=== PATIENT | female | born 1985 | race Caucasian/White ===

== ENCOUNTER 2025-07-20 08:19 | Outpatient (REF) | payer MEDICAID, SELFPAY ==
--- OUTSIDE RECORDS SUMMARY | 2025-07-20 08:25 | XMS_ITS | Encounter Summary ---
Author Organization [employer] Address [address] [facility] [address] [place] [address] Care Team Providers Care Pipe Layer Helper Name Role Phone Alida Torres CNP Primary Care Provider [phone] Encounter Details Date Type Department Care Team ([facility] Contact Info) Description 05/09/2025 Telephone [facility] CHC MED & PEDS [address] [place] [address] Alida Torres CNP [address] [place] [address] Social History Tobacco Use Types Packs/Day Years Used Date Smoking Tobacco: Never Assessed Comments Unknown Sex and Gender Information Value Date Recorded Sex Assigned at Female 06/08/2025 10:28 AM EDT Legal Sex Female 1:48 PM EST Gender Identity Female 06/08/2025 10:28 AM EDT Sexual Orientation Straight 06/21/2025 11 :19 AM EDT documented as of this encounter Miscellaneous Notes * Telephone Encounter - Apmaro Webb - 05/09/2025 1:23 PM EDT Incoming call to patient to book New Patient appt. Patient booked for 06/08/25 with Brian. Medical DX Reported : Pt reported had 2 Colon polyps removed *[employer] House Centrifugal Operator advised caller to arrive 15 minutes early for the visit. Caller was also informed to notifythe clinic if the visit is no longer needed. No-shows will be placed at the bottom of the scheduling list. Appt reminder and sent via text and mail. documented in this encounter Plan of Treatment Upcoming Encounters Date Type Department Care Team (Late st Contact Info) Description 07/20/2025 9:00 AM EDT Office Visit [facility] CHC MED & PEDS [address] [place] [address] Alida Torres CNP [address] [place] [address] documented as of this encounter Visit Diagnoses Not on filedocumented in this encounter Care Teams Pipe Layer Helper Relationship Specialty Start Date End Date Alida Torres CNP [address] [place] [address] PCP - General Family Medicine 06/08/25 documented as of this encounter
--- OUTSIDE RECORDS SUMMARY | 2025-07-20 08:26 | XMS_ITS | Encounter Summary ---
Author Organization [employer] Address [address] [place] [address] Care Team Providers Care System Developer Associate Manager Name Role Phone TorresAlida DAVID Primary Care Provider [phone] Encounter Details Date Type Department Care Team ([facility] st Contact Info) Description 06/08/2025 Orders Only [facility] CHC MED & PEDS [address] [place] [address] Provider, MD Ramila Social History Tobacco Use Types Packs/Day Years Used Date Smoking Tobacco: Former Cigarettes Q uit: 2020 Passive Smoke Exposure: Past Smokeless Tobacco: Never Depression Answer Date Recorded Patient Health Questionnaire-9 Score 14 06/08/2025 Patient Health Questionnaire-9 Score 14 06/08/2025 Last PHQ-9: Questionnaire Data Not on file 0 06/08/2025 Housing Stability Answer Date Recorded What is your housing situation today? I have bettyurbano somers 06/08/[address] you li ve. Do you have problems with any of the following? None of the above 06/08/2025 Food Insecurity Answer Date Recorded Within the past 12 months, y ou worried that your food would run out before you got money to buy more: Sometimes True 2024 Within the past 12 months,th e food you bought just didn't last and you didn't have enough money to get more: Sometimes True 06/08/2025 Transportation Answer Date Recorded In the past 12 months, has l ack of transportation kept you from medical appts, meetings, work or from getting things needed for daily living? No 06/08/2025 Utilities Answer Date Recorded In the past 12 months, has t he electric, gas, oil or water company threatened to shut off services in your home? No 06/08/2025 Depression Answer Date Recorded Patient Health Questionnaire-2 Score 3 06/08/2025 Internet Access Answer Date Recorded Internet Access Q1 Yes 06/08/2025 Internet Access Q2 Not on file 06/08/2025 Comments No Sex and Gender Information Value Date Recorded Sex Assigned at Female 06/08/2025 10:28 AM EDT Legal Sex Female 1:48 PM EST Gender Identity Female 06/08/2025 10:28 AM EDT Sexual Orientation Straight 06/21/2025 11 :19 AM EDT documented as of this encounter Functional Status * Over the past 2 weeks, how often have you been bothered by any of the following problems? Question Answer Date of Assessment Author Patient Health Questionnaire -2 Score 3 06/08/2025 12:01 PM EDT Sa elissa Arroyo [place] * Little interest or pleasure in doing things Answer Date of Assessment Author Several days 06/08/2025 12:01 PM EDT Kenia Mustafa MA * Feeling down, depressed, or hopeless Answer Date of Assessment Author More than half the days 06/08/2025 12:01 PM EDT Kenia Arroyo MA * Trouble falling or staying asleep, or sleeping too much Answer Date of Assessment Author More than half the days 06/08/2025 12:01 PM EDT Kenia Arroyo MA * Feeling tired or having little energy Answer Date of Assessment Author More than half the days 06/08/2025 12:01 PM EDT Kenia Arroyo MA * Poor appetite or overeating Answer Date of Assessment Author More than half the days 06/08/2025 12:01 PM EDT Kenia Arroyo MA * Feeling bad about yourself - or that you are a failure or have let yourself or your family down Answer Date of Assessment Author Nearly every day 06/08/2025 12:01 PM EDT Kenia Banda MA * Trouble concentrating on things, such as reading the newspaper or watching television Answer Date of Assessment Author More than half the days 06/08/2025 12:01 PM EDT Kenia Arroyo MA * Moving or speaking so slowly that other people could have noticed? Or the opposite - being so fidgety or restless that you have been moving around a lot more than usual. Answer Date of Assessment Author Not at all 06/08/2025 12:01 PM EDT Kenia Mustafa MA * Thoughts that you would be better off or hurting yourself in some way Answer Date of Assessment Author Not at all 06/08/2025 12:01 PM EDT Kenia Mustafa MA * Patient Health Questionnaire-9 Score Answer Date of Assessment Author 14 06/08/2025 12:01 PM EDT Kenia Mustafa MA * How difficult have these problems made it for you to do your work, take care of things at home, or get along with other people? Answer Date of Assessment Author Somewhat difficult 06/08/2025 12:01 PM EDT Kenia Castro MA * Over the last 2 weeks, how often have you been bothered by any of the following problems? Question Answer Date of Assessment Author Feeling nervous, anxious, or on edge 2 06/08/2025 12:02 PM EDT Sa elissa Arroyo MA Not being able to stop or control worrying 2 06/08/2025 12:02 PM EDT Sa elissa Arroyo MA Worrying too much about different things 2 06/08/2025 12:02 PM EDT Sa elissa Arroyo MA Trouble relaxing 2 06/08/2025 12:02 PM AVELINAT Kenia Arroyo MA Being so restless that it is hard to sit still 2 06/08/2025 12:02 PM EDT Sa elissa Arroyo MA Becoming easily annoyed or irritable 3 06/08/2025 12:02 PM AVELINAT Sa elissa Arroyo MA Feeling afraid as if somethi ng awful might happen 2 06/08/2025 12:02 PM EDT Sa elissa Arroyo MA ROSY-7 Total Score 15 06/08/2025 12:02 PM EDT Kenia Arroyo MA documented as of this encounter Plan of Treatment Upcoming Encounters Date Type Department Care Team (Late st Contact Info) Description 07/20/2025 9:00 AM EDT Office Visit [facility] MED & PEDS [address] [place] [address] Alida Torres CNP [address] [place] [address] documented as of this encounter Procedures Procedure Name Priority Date/Time Associated Diagnosis Comments COLONOSCOPY Routine 12/08/2023 1:26 PM EDT documented in this encounter Results * Hm Colonoscopy (12/08/2023 1:26 PM EDT) us Historical Provider HEALTH MAINTENANCE Final Result documented in this encounter Visit Diagnoses Not on filedocumented in this encounter Additional Health Concerns Assessment Noted Time PHQ-9 Depression Total Score: 14 025 12:01 PM EDT documented as of this encounter Care Teams System Developer Associate Manager Relationship Specialty Start Date End Date Alida Torres CNP [address] [place] [address] PCP - General Family Medicine 06/08/25 documented as of this encounter
--- OUTSIDE RECORDS SUMMARY | 2025-07-20 08:26 | XMS_ITS | Encounter Summary ---
Author Organization [employer] Address [address] [facility] 7[address] [place] [address] Care Team Providers Care Stile Ripsaw Operator Name Role Phone Alida Torres CNP Primary Care Provider [phone] Reason for Visit * Reason Onset Date Comments chart prep 07/16/2025 Encounter Details Date Type Department Care Team ([facility] Contact Info) Description 07/16/2025 Telephone [facility] CHC MED & PEDS [address] [place], [place] [phone] Alida Torres CNP [address] [place] [address] chart prep Social History Tobacco Use Types Packs/Day Years Used Date Smoking Tobacco: Former Cigarettes Q uit: 2020 Passive Smoke Exposure: Past Smokeless Tobacco: Never Depression Answer Date Recorded Patient Health Questionnaire-9 Score 14 06/08/2025 Patient Health Questionnaire-9 Score 14 06/08/2025 Last PHQ-9: Questionnaire Data Not on file 0 06/08/2025 Housing Stability Answer Date Recorded What is your housing situation today? I have betty somers 06/08/[address] you [...] encounter Miscellaneous Notes * Telephone Encounter - Kenia Arroyo MA - 07/16/2025 2:17 PM EDT Chart Prep Labs: not done Images: not applicable Referrals: appointment pending Vaccines due: Covid, Flu, Hep B, and HPV Screenings: pap smear, mammogram (08/15/25 at 1:15 PM) Overdue care gaps: Not applicable documented in this encounter Plan of Treatment Upcoming Encounters Date Type Department Care Team (Late st Contact Info) Description 07/20/2025 9:00 AM EDT Office Visit [facility] MED & PEDS [address] [place] [address] Alida Torres CNP [address] [place] [address] documented as of this encounter Visit Diagnoses Not on filedocumented in this encounter Additional Health Concerns Assessment Noted Time PHQ-9 Depression Total Score: 14 025 12:01 PM EDT documented as of this encounter Care Teams Stile Ripsaw Operator Relationship Specialty Start Date End Date Alida Torres CNP [address] [place] [address] PCP - General Family Medicine 06/08/25 documented as of this encounter
--- OUTSIDE RECORDS SUMMARY | 2025-07-20 08:26 | XMS_ITS | Clinical Summary ---
Author Organization [employer] Address [address] [facility] 7t [place] [address] Care Team Providers Care Head Of Ethics And Compliance Name Role Phone Alida Torres CNP Primary Care Provider [phone] [phone] Allergies No known active allergies Medications sertraline (Zoloft) 50 MG tabletIndicatio ns:Anxiety,Lab Support Service Tech leda bilateral low back pain with bilateral sciatica Take 1/2 (25mg) tablet by mouth for 7 days. If tolerated may increase to 1 tablet (50mg) daily. 30 tablet 3 5 Active ibuprofen 600 MG tabletIndicatio ns:Chronic bilateral low back pain with bilateral sciatica Take 1 tablet (600 mg) by mouth 3 times daily. 90 tablet 5 07/08/20 25 lidocaine (Lidoderm) 5 % patchIndication s:Chronic bilateral low back pain with bilateral sciatica Apply 1 patch topically Once per day. Remove & discard patch within 12 hours or as directed by MD. 30 patch 5 07/08/20 25 Active Problems Problem Noted Date Diagnosed Date Anxiety and depression 12/01/2022 Family history of colon cancer 12/01/2022 Former smoker 12/01/2022 H/O section 12/01/2022 Encounters Date Type Department Care Team Description 07/16/2025 Telephone [facility] MED & PEDS [address] [place] [address] Alida Torres CNP chart prep 07/13/2025 Travel 06/08/2025 10:45 AM EDT Office Visit [facility] MED & PEDS [address] [place] [address] Alida Torres CNP Routine physical examination (Primary Dx); Anxiety; Chronic bilateral low back pain with bilateral sciatica; Dietary counseling; Exercise counseling; Class 2 obesity due to excess calories with body mass index (BMI) of 36.0 to 36.9 in adult, unspecified whether serious comorbidity present 06/08/2025 Orders Only [facility] MED & PEDS [address] [place] [address] ProviderRamila MD 06/08/2025 Travel 06/01/2025 Patient Outreach [facility] [address] [place] [address] Reymundo Hamilton MD Pre-visit Planning (Pre visit planning LVM ) 05/23/2025 Telephone [facility] MED & PEDS [address] [place] [address] Kenia Arroyo MA chart prep 05/09/2025 Telephone [facility] MED & PEDS [address] [place] [address] Alida Torres CNP from Last 3 Months Immunizations Immunization Administration Dates Next Due Influenza, IIV3, injectable 06/04/2017 Tdap 06/04/2017 Family History Medical History Relation Name Comments Colon cancer Father Uterine cancer Mother Relation Name Status Comments Father Mother Social History Tobacco Use Types Packs/Day Years [...] Orientation Straight 06/21/2025 11 :19 AM EDT Last Filed Vital Signs Vital Sign Reading Time Taken Comments Blood Pressure 132/80 06/08/2025 11:34 AM EDT Pulse 62 06/08/2025 10:43 AM EDT Temperature 36.7 C (98.1 F) 06/08/2025 10:43 AM EDT Respiratory Rate 20 06/08/2025 10:43 AM EDT Oxygen Saturation 98% 06/08/2025 10:43 AM EDT Inhaled Oxygen Concentration - - Weight 91.6 kg (202 lb) 06/08/2025 10:43 AM EDT Height 157.5 cm (5' 2 ) 06/08/2025 10:43 AM EDT Body Mass Index 36.95 06/08/2025 10:43 AM EDT Plan of Treatment Upcoming Encounters Date Type Department Care Team (Late st Contact Info) Description 07/20/2025 9:00 AM EDT Office Visit [facility] CHC MED & PEDS [address] [place] [address] Alida Torres, INGREDIENT SCALER [address] [place] [address] Health Maintenance Due Date Last Done Comments Lipid Panel 1985 Family Planning (PISQ) 2000 HPV Vaccines (1 - 3-dose series) 2000 Hepatitis C Screening 2003 Hepatitis B Vaccines (1 of 3 - 19+ 3-dose series) 2004 Pap Smear 2006 Cervical Cancer Screening 2015 HPV/Cotest 2015 COVID-19 Vaccine (1 - 2023-2 5 season) 2025 Influenza Vaccine (#1) 2025 06/04/2017 Depression Monitoring 12/06/2025 06/08/2025 , 06/08/2025 Alcohol/Substance Use Screening 06/08/2026 06/08/2025 SDOH Screening 06/08/2026 06/08/2025 Tobacco Screening 06/08/2026 06/08/2025 Disability Screening 07/13/2026 07/13/2025 DTaP/Tdap/Td Vaccines (2 - T d or Tdap) 06/04/2027 06/04/2017 Zoster Vaccines (1 of 2) 2035 RSV Patients and Patients Aged 60 years or older (1 - 1-dose 75+ series) 2060 HIV Screening Completed 12/22/2022 HIB Vaccines Aged Out No longer eligi ble based on patient's age to complete this topic Hepatitis A Vaccines Aged Out No long er eligible based on patient's age to complete this topic IPV Vaccines Aged Out No longer eligi ble based on patient's age to complete this topic Meningococcal B Vaccine Aged Out No l onger eligible based on patient's age to complete this topic Meningococcal Vaccine Aged Out No howard isaias eligible based on patient's age to complete this topic Pneumococcal Vaccine: Pediatrics (0 to 5 Years) and At-Risk Patients (6 to 49) Years Aged Out No longer eligible b ased on patient's age to complete this topic RSV under 20 months Aged Out No longe r eligible based on patient's age to complete this topic Rotavirus Vaccines Aged Out No longer eligible based on patient's age to complete this topic [email or web address] Care Teams Head Of Ethics And Compliance Relationship Specialty Start Date End Date Alida Torres CNP [address] [place] [address] PCP - General Family Medicine 06/08/25
[2025-07-20 14:06] LABS: MANUAL DIFF FLAG NO
[2025-07-20 14:17] LABS: Hematocrit 42.7 % (37.0-47.0); Hemoglobin 14.0 g/dl (12.0-16.0); Imm Gran Abs Auto 0.03 X10*3/uL (0.00-0.03); Imm Gran Pct Auto 0.3 % (0.0-0.4); Lymphocytes Absolute Auto 2.6 X10*3/uL (1.2-4.9); Mean Corpuscular HGB Conc 32.8 g/dl (31.0-35.0); Mean Corpuscular Hemoglobin 30.0 pg (27.0-33.0); Mean Corpuscular Volume 91.6 fL (80.0-98.0); NRBC Abs Auto 0.000 X10*3/uL (0.0-0.012); NRBC Pct Auto 0.0 /100WBC (0.0-0.2); Platelet Count 253 X10*3/uL (160-400); Red Blood Count 4.66 X10*6/uL (4.20-5.50); White Blood Count 9.1 X10*3/uL (4.8-10.8)
[2025-07-20 14:26] LABS: Anion Gap 11 (12-20); Blood Urea Nitrogen 11 mg/dL (9-16); Calcium 9.3 mg/dL (8.4-10.2); Carbon Dioxide 23 mmol/L (22-29); Chloride 109 mmol/L (96-108); Cholesterol 195 mg/dL (<200); Estimated Glomerular Filt Rate > 60; HDL Cholesterol 43 mg/dL (>40); Potassium 4.1 mmol/L (3.3-5.1); Sodium 139 mmol/L (135-145); Triglycerides 85 mg/dL (<150)
[2025-07-21 07:50] LABS: HBS Num1 7.93 mIU/mL (0-7.99); HBc Num1 0.08 S/CO (0.00-0.79); HBsAGNum1 0.37 S/CO (0.00-0.99); HIV Num 1 0.07 S/CO (0.00-0.99); Hepatitis B Surface Antigen Negative (Negative); ~HepC Num1 0.10 S/CO (0.00-0.79); ~Hepatitis B Surface Antibody NONREACTIVE (Nonreactive); ~Hepatitis C Antibody Nonreactive (Nonreactive)
== END 2025-07-20 08:20 | disposition home or self-care (01) ==
LOC: HO.CHCLDS 08:19
DX: Z00.00 Encounter for general adult medical examination without abnormal findings (principal); Z11.4 Encounter for screening for human immunodeficiency virus [HIV]; Z11.59 Encounter for screening for other viral diseases
CPT/HCPCS: 36415; 80048; 80061; 85025; 86704; 86706; 86803; 87340; 87389

== ENCOUNTER 2025-08-15 15:02 | Outpatient (REF) | payer MEDICAID, SELFPAY ==
--- NOTE | ~2025-08-15 | MM_ITS ---
EXAMINATION: MM SCREENING DIGITAL BREAST TOMOSYNTHESIS, BILATERAL CLINICAL INFORMATION: Screening. Asymptomatic. COMPARISON: None. This is a baseline study. TECHNIQUE: Digital breast tomosynthesis is performed in mediolateral oblique and craniocaudal views along with computer-aided detection (CAD). Synthesized 2D images are generated from the tomosynthesis. FINDINGS: BREAST COMPOSITION: There are scattered areas of fibroglandular density. RIGHT BREAST: Approximately 0.7 cm focal asymmetry in the lateral breast at approximately 9 o'clock position posterior depth at 11-12 cm from the nipple (MLO 14/75, CC 17/72). No suspicious calcifications or other abnormalities are seen. LEFT BREAST: No significant masses, suspicious calcifications or other abnormalities are seen. MM/MM tomosynthesis screening BI IMPRESSION: RIGHT BREAST: 0.7 cm focal asymmetry in the lateral breast at approximately 9 o'clock position posterior depth. LEFT BREAST: Negative, no mammographic evidence of malignancy. Normal interval follow-up is recommended in 12 months. ASSESSMENT: BI-RADS: Category 0: Incomplete - Need additional Imaging Evaluation RECOMMENDATION: 1. Additional views of the right breast 2. Targeted ultrasound if warranted after review of the additional views. 3. Radiology department staff will contact the patient for additional imaging. FOLLOW-UP: Additional Imaging required This examination should not preclude the clinical evaluation of a suspicious palpable abnormality. This patient's information was entered into a reminder system with a target due date for their next mammogram. Electronically signed by: Stefanie Roberto MD 08/17/2025 05:42 PM [facility]
--- OUTSIDE RECORDS SUMMARY | 2025-08-15 17:37 | XMS_ITS | Encounter Summary ---
Author Organization [employer] Address [address] [place] [address] Care Team Providers Care English Language Learner Tutor Name Role Phone TorresAlida DAVID Primary Care Provider [phone] Encounter Details Date Type Department Care Team ([facility] st Contact Info) Description 06/08/2025 Orders Only [facility] CHC MED & PEDS [address] [place] [address] Provider, MD Ramila Social History Tobacco Use [...] MA Trouble relaxing 2 06/08/2025 12:02 PM EDT Kenia Arroyo MA Being so restless that it is hard to sit still 2 06/08/2025 12:02 PM EDT Sa elissa Arroyo MA Becoming easily annoyed or irritable 3 06/08/2025 12:02 PM EDT Sa elissa Arroyo MA Feeling afraid as if somethi ng awful might happen 2 06/08/2025 12:02 PM EDT Sa elissa Arroyo MA ROSY-7 Total Score 15 06/08/2025 12:02 PM EDT Kenia Arroyo MA documented as of this encounter Plan of Treatment Not on file documented as of this encounter Procedures Procedure Name Priority Date/Time Associated Diagnosis Comments COLONOSCOPY Routine 12/08/2023 1:26 PM EDT documented in this encounter Results * Hm Colonoscopy (12/08/2023 1:26 PM EDT) us Historical Provider MD HEALTH MAINTENANCE Final Result documented in this encounter Visit Diagnoses Not on filedocumented in this encounter Additional Health Concerns Assessment Noted Time PHQ-9 Depression Total Score: 14 025 12:01 PM EDT documented as of this encounter Care Teams English Language Learner Tutor Relationship Specialty Start Date End Date Alida Torres CNP [address] [place] [id number] PCP - General Family Medicine 06/08/25 documented as of this encounter
--- OUTSIDE RECORDS SUMMARY | 2025-08-15 17:37 | XMS_ITS | Clinical Summary ---
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 If tolerated may increase to 1 tablet (50mg) daily. 30 tablet 3 Active Active Problems Problem Noted Date Diagnosed Date Anxiety and depression 12/01/2022 Family history of colon cancer 12/01/2022 Former smoker 12/01/2022 H/O section 12/01/2022 Encounters Date Type Department Care Team Description 07/20/2025 9:00 AM EDT Office Visit [facility] [address] [place] [address] Alida Torres CNP Anxiety (Primary Dx) 07/20/2025 Results Follow-Up [facility] [address] [place] [address] Alida Torres CNP Lipid Panel, Standard, CBC auto differential, Basic Metabolic Panel 07/20/2025 Travel 07/16/2025 Telephone [facility] [address] [place] [address] Alida Torres CNP chart prep 07/13/2025 Travel 06/08/2025 10:45 AM EDT Office Visit [facility] [address] [place] [address] Alida Torres CNP Routine physical examination (Primary Dx); Anxiety; Chronic bilateral low back pain with bilateral sciatica; Dietary counseling; Exercise counseling; Class 2 obesity due to excess calories with body mass index (BMI) of 36.0 to 36.9 in adult, unspecified whether serious comorbidity present 06/08/2025 Orders Only [facility] [address] [place] [address] ProviderRamila MD 06/08/2025 Travel 06/01/2025 Patient Outreach [facility] [address] [place] [address] Reymundo Hamilton MD Pre-visit Planning (Pre visit planning LVM ) 05/23/2025 Telephone [facility] [address] [place] [address] Kenia Arroyo MA chart prep from Last 3 Months Immunizations Immunization Administration Dates Next Due Influenza, IIV3, injectable 06/04/2017 Tdap 06/04/2017 Family History Medical History Relation Name Comments Colon cancer Father Uterine cancer Mother Relation Name Status Comments Father Mother Social History Tobacco Use Types Packs/Day Years Used Date Smoking Tobacco: Former Cigarettes Q uit: 2020 Passive Smoke Exposure: Past Smokeless Tobacco: Never Tobacco Cessation:Counseling Given: Not Answered Depression Answer Date Recorded Patient Health Questionnaire-9 [...] Sign Reading Time Taken Comments Blood Pressure 130/63 07/20/2025 8:46 AM EDT Pulse 56 07/20/2025 8:46 AM EDT Temperature 36.7 C (98 F) 07/20/2025 8:46 AM EDT Respiratory Rate 18 07/20/2025 8:46 AM EDT Oxygen Saturation 98% 06/08/2025 10:43 AM EDT Inhaled Oxygen Concentration - - Weight 88.9 kg (196 lb) 07/20/2025 8:46 AM EDT Height 156.8 cm (5' 1.75 ) 07/20/2025 8:46 AM ED T Body Mass Index 36.14 07/20/2025 8:46 AM EDT Plan of Treatment Health Maintenance Due Date Last Done Comments Family Planning (PISQ) 2000 HPV Vaccines (1 - 3-dose series) 2000 Hepatitis B Vaccines (1 of 3 - 19+ 3-dose series) 2004 Pap Smear 2006 Cervical Cancer Screening 2015 HPV/Cotest 2015 Mammogram 2025 Depression Monitoring 12/06/2025 06/08/2025 , 06/08/2025 Influenza Vaccine (#1) 2026 06/04/2017 Postp oned from 05/21/2025 (Patient Refused) Alcohol/Substance Use Screening 06/08/2026 06/08/2025 SDOH Screening 06/08/2026 06/08/2025 Disability Screening 07/13/2026 07/13/2025 COVID-19 Vaccine (1 - 2024-2 6 season) 2026 Postponed from 05/21 (Patient Refused) Tobacco Screening 07/20/2026 07/20/2025 DTaP/Tdap/Td Vaccines (2 - T d or Tdap) 06/04/2027 06/04/2017 Lipid Panel 07/20/2030 07/20/2025 Zoster Vaccines (1 of 2) 2035 RSV Patients and Patients Aged 60 years or older (1 - 1-dose 75+ series) 2060 HIV Screening Completed 07/20/2025, 12/22/2022 Hepatitis C Screening Completed 07/20/2025 HIB Vaccines Aged Out No longer eligi [...] on patient's age to complete this topic Procedures Procedure Name Priority Date/Time Associated Diagnosis Comments BASIC METABOLIC PANEL Routine 07/20/2025 8:21 AM EDT Routine physical examination CBC WITH AUTO DIFFERENTIAL Routine 07/20/2025 8:21 AM EDT Routine physical examination LIPID PANEL, STANDARD Routine 07/20/2025 8:21 AM EDT Routine physical examination HEPATITIS B SURFACE ANTIGEN, EIA Routine 07/20/2025 8:21 AM EDT Routine physical examination HEPATITIS B CORE AB TOTAL Routine 07/20/2025 8:21 AM EDT Routine physical examination HEPATITIS B SURFACE ANTIBODY, QUALITATIVE Routine 07/20/2025 8:21 AM EDT Routine physical examination HIV 1/2 ANTIGEN/ANTIBODY, FOURTH GENERATION W/RFL Routine 07/20/2025 8:21 AM EDT Routine physical examination HEPATITIS C AB W/REFL TO HCV RNA, QN, PCR Routine 07/20/2025 8:21 AM EDT Routine physical examination from Last 3 Months Results * (ABNORMAL) CBC auto differential (07/20/2025 8:21 AM EDT) White Blood Count 9.1 4.8 - 10.8 X10*3/uL [facility] Red Blood Count 4.66 4.20 - 5.50 X10*6/uL [facility] Hemoglobin 14.0 12.0 - 16.0 g/dl [facility] Hematocrit 42.7 37.0 - 47.0 % [facility] Mean Corpuscular Volume 91.6 80.0 - 98.0 fL [facility] Mean Corpuscular Hemoglobin 30.0 27.0 - 33.0 pg [facility] Mean Corpuscular HGB Conc 32.8 31.0 - 35.0 g/dl [facility] Red Cell Distribution Width 12.9 11.0 - 16.0 % [facility] Platelet Count 253 160 - 400 X10*3/uL [facility] Mean Platelet Volume 13.2(H) 9.4 - 12.3 fL [facility] Neutrophils Percent Auto 59.3 45 - 73 % [facility] Imm Gran Pct Auto 0.3 0.0 - 0.4 % [facility] Lymphocytes Percent Auto 29.0 20 - 40 % [facility] Monocytes Percent Auto 4.6 2 - 11 % [facility] Eosinophils Percent Auto 5.9(H) 0 - 4 % [facility] Basophils Percent Auto 0.9 0 - 2 % [facility] NRBC Pct Auto 0.0 0.0 - 0.2 /100WBC [facility] Neutrophils Absolute Auto 5.4 2.0 - 8.3 x10*3/uL [facility] Imm Gran Abs Auto 0.03 0.00 - 0.03 X10*3/uL [facility] Lymphocytes Absolute Auto 2.6 1.2 - 4.9 X10*3/uL [facility] Monocytes Absolute Auto 0.4 0.1 - 1.2 X10*3/uL [facility] Eosinophils Absolute Auto 0.5(H) 0.0 - 0.4 X10*3/uL [facility] Basophils Absolute Auto 0.1 0.0 - 0.2 X10*3/uL [facility] NRBC Abs Auto 0.000 0.0 - 0.012 X10*3/uL [facility] Blood Venous blood specimen / Unknown 07/20/2025 8:21 AM EDT 07/20/2025 2:00 PM EDT [facility] LAB BLOOD ORDERABLES Emely l Result Performing Organization Address [facility] de Phone Number [facility] [address] [place] [phone] * Hepatitis C Antibody with Reflex to HCV, RNA, Quantitative, Real-Time PCR (07/20/2025 8:21 AM EDT) [facility] Hepatitis C Antibody Nonreactive Nonreactive [facility] Comment:Antibodies to HCV no t detected; does not exclude early acuteHCV infection. Blood Venous blood specimen / Unknown 07/20/2025 8:21 AM EDT 07/20/2025 2:00 PM EDT [facility] LAB BLOOD ORDERABLES Emely l Result Performing Organization Address [facility] Co de Phone Number [facility] [address] [place] [address] [phone] * Hepatitis B surface antigen, EIA (07/20/2025 8:21 AM EDT) [facility] Hepatitis B Surface Ag Negative Negative [facility] Blood Venous blood specimen / Unknown 07/20/2025 8:21 AM EDT 07/20/2025 2:00 PM EDT [facility] LAB BLOOD ORDERABLES Emely l Result Performing Organization Address [facility]/ZIP Co de Phone Number [facility] [address] [place] [phone] * Hepatitis B Core Antibody, Total (07/20/2025 8:21 AM EDT) Pathologist [facility] Hepatitis B Core Antibody Nonreactive Nonreactive [facility] Blood Venous blood specimen / Unknown 07/20/2025 8:21 AM EDT 07/20/2025 2:00 PM EDT [facility] LAB BLOOD ORDERABLES Emely l Result Performing Organization Address [facility] Co de Phone Number [facility] [address] [place] [phone] * HIV-1/2 Antigen and Antibodies, Fourth Generation, with Reflexes (07/20/2025 8:21 AM EDT) Pathologist [facility] HIV AB/AG Nonreactive Nonreactive [facility] Comment:HIV-1 p24 Ag and/or HIV-1/HIV-2 Ab not detected.A test result that is nonreactive does not exclude thepossibility of exposure to or infection with HIV-1 and/orHIV-2. Nonreactive results in this assay for individualswith prior exposure to HIV-1 and/or HIV-2 may be due toantigen and antibody levels that are below the limit ofdetection of this assay.The [employer] HIV Ag/Ab Combo assay result andsupplemental assay results should be interpreted inconjunction with the patient's clinical presentation,history and other laboratory results. If the results areinconsistent with clinical evidence, additional testing issuggested to confirm the result. Blood Venous blood specimen / Unknown 07/20/2025 8:21 AM EDT 07/20/2025 2:00 PM EDT [facility] LAB BLOOD ORDERABLES Emely l Result Performing Organization Address [facility] Co de Phone Number [facility] [address] [place] [phone] * Hepatitis B Surface Antibody, Qualitative (07/20/2025 8:21 AM EDT) Pathologist [facility] ~Hepatitis B Surface Antibody NONREACTIVE Nonreactive [facility] Comment:Nonreactive: < 8.00 mIU/mL Blood Venous blood specimen / Unknown 07/20/2025 8:21 AM EDT 07/20/2025 2:00 PM EDT [facility] LAB BLOOD ORDERABLES Emely l Result Performing Organization Address [facility] Co de Phone Number [facility] [address] [place] [phone] * (ABNORMAL) Lipid Panel, Standard (07/20/2025 8:21 AM EDT) Pathologist [facility] Triglycerides 85 <150 mg/dL [facility] Comment:Desirable Triglyceri de: less than 150 mg/dLBorderline High Triglyceride 150-199 mg/dLHigh Triglyceride: 200-499 mg/dLVery High Triglyceride: greater than or equal to 5OO mg/dL Cholesterol 195 <200 mg/dL [facility] Comment:Desirable Cholestero l: less than 200 mg/dLBorderline High Cholesterol: 200-239 mg/dLHigh Cholesterol: greater than 239 mg/dL LDL Cholesterol Calculated 135(H) <100 mg/dL [facility] Comment:Desirable LDL: less than 100 mg/dLNear Optimal/Above Optimal LDL: 110- 129 mg/dLBorderline High LDL: 130-159 mg/dLHigh LDL: 160-189 mg/dLVery High LDL: greater than or equal to 190 mg/dL HDL Cholesterol 43 >40 mg/dL [facility] Comment:Desirable HDL: great er than 40 mg/dL Note: This HDL assay may give artificially low results in patients with liver disease. Blood Venous blood specimen / Unknown 07/20/2025 8:21 AM EDT 07/20/2025 2:00 PM EDT [facility] LAB BLOOD ORDERABLES Emely l Result Performing Organization Address [facility]/ZIP Co de Phone Number [facility] [address] [place] [phone] * (ABNORMAL) Basic Metabolic Panel (07/20/2025 8:21 AM EDT) Sodium 139 135 - 145 mmol/L [facility] Potassium 4.1 3.3 - 5.1 mmol/L [facility] Chloride 109(H) 96 - 108 mmol/L [facility] Carbon Dioxide 23 22 - 29 mmol/L [facility] Anion Gap 11(L) 12 - 20 [facility] Urea Nitrogen (BUN) 11 9 - 16 mg/dL [facility] Creatinine, Serum 0.59 0.5 - 1.4 mg/dL [facility] Estimated Glomerular Filt Rate >60 [facility] Comment:Chronic Kidney Disea se: Estimated GFR < 60 mL/min/[id number] Kidney Disease: Estimated GFR < 15 mL/min/1.73m2 Glucose 77 60 - 115 mg/dL [facility] Calcium 9.3 8.4 - 10.2 mg/dL [facility] Blood Venous blood specimen / Unknown 07/20/2025 8:21 AM EDT 07/20/2025 2:00 PM EDT [facility] LAB BLOOD ORDERABLES Emely l Result Performing Organization Address [facility]/ZIP Co de Phone Number [facility] [address] [place] [address] [phone] from Last 3 Months Insurance [facility] C3 Care Teams Filler Sifter Helper Relationship Specialty Start Date End Date Alida Torres CNP [address] [place] [phone] PCP - General Family Medicine 06/08/25
--- OUTSIDE RECORDS SUMMARY | 2025-08-15 17:37 | XMS_ITS | Encounter Summary ---
Author Organization [employer] Address [address] [facility] 7t [place] [address] Care Team Providers Care Machine Fastener Name Role Phone Alida Torres CNP Primary Care Provider [phone] Encounter Details Date Type Department Care Team ([facility] Contact Info) Description 07/20/2025 Results Follow-Up [facility] [address] [place] [address] Alida Torres, DAVID [address] [place] [address] Lipid Panel, Standard, CBC auto differential, Basic Metabolic Panel Social History Tobacco Use Types Packs/Day Years [...] AM EDT documented as of this encounter Plan of Treatment Not on file documented as of this encounter Visit Diagnoses Not on filedocumented in this encounter Additional Health Concerns Assessment Noted Time PHQ-9 Depression Total Score: 14 025 12:01 PM EDT documented as of this encounter Care Teams Machine Fastener Relationship Specialty Start Date End Date Alida Torres CNP [address] [place] [phone] PCP - General Family Medicine 06/08/25 documented as of this encounter
--- OUTSIDE RECORDS SUMMARY | 2025-08-15 17:37 | XMS_ITS | Encounter Summary ---
Author Organization [employer] Address [address] [facility] [address] [place] [address] Care Team Providers Care Scene Shifter Name Role Phone Alida Torres CNP Primary Care Provider [phone] Encounter Details Date Type Department Care Team ([facility] Contact Info) Description 05/09/2025 Telephone [facility] [address] [place] [address] Alida Torres CNP [address] [place] [address] Social History Tobacco Use Types Packs/Day Years Used Date Smoking Tobacco: Never Assessed Comments Unknown Sex and Gender Information Value Date Recorded Sex Assigned at Female 06/08/2025 10:28 AM EDT Legal Sex Female 1:48 PM EST Gender Identity Female 06/08/2025 10:28 AM EDT Sexual Orientation Straight 06/21/2025 11 :19 AM EDT documented as of this encounter Miscellaneous Notes * Telephone Encounter - Amparo Webb - 05/09/2025 1:23 PM EDT Incoming call to patient to book New Patient appt. Patient booked for 06/08/25 with Brian. Medical DX Reported : Pt reported had 2 Colon polyps removed *Electronic Operator advised caller to arrive 15 minutes early for the visit. Caller was also informed to notifythe clinic if the visit is no longer needed. No-shows will be placed at the bottom of the scheduling list. Appt reminder and sent via text and mail. documented in this encounter Plan of Treatment Not on file documented as of this encounter Visit Diagnoses Not on filedocumented in this encounter Care Teams Scene Shifter Relationship Specialty Start Date End Date Alida Torres CNP [address] [place], [place] [address] [address] PCP - General Family Medicine 06/08/25 documented as of this encounter
== END 2025-08-15 15:03 | disposition home or self-care (01) ==
LOC: HO.MAMMO 15:02
DX: Z00.00 Encounter for general adult medical examination without abnormal findings (principal); Z12.31 Encounter for screening mammogram for malignant neoplasm of breast
CPT/HCPCS: 77063; 77067

== ENCOUNTER → 2025-08-15 15:15 | Outpatient (BNV) | payer MEDICAID, SELFPAY | PROVIDERS: Visit Provider Radiology Body Imaging | DX: Z12.31 Encounter for screening mammogram for malignant neoplasm of breast (principal) | CPT/HCPCS: 77063; 77067 ==

== ENCOUNTER 2025-09-17 15:25 | Outpatient (REF) | payer MEDICAID, SELFPAY ==
--- NOTE | ~2025-09-17 | XR_ITS ---
EXAMINATION: XR LUMBAR SPINE 2-3 VIEWS HISTORY: fall COMPARISON: There are no prior studies for comparison. FINDINGS: AP, lateral, and coned down views of the lumbar spine are submitted. Osseous mineralization is normal. Five nonrib-bearing lumbar vertebral bodies are identified, maintaining normal height and alignment without evidence of fracture or spondylolisthesis. The intervertebral disc spaces are preserved. The posterior elements are intact. The visualized paraspinal soft tissues are unremarkable. XR/XR lumbar spine 2-3V IMPRESSION: Unremarkable examination of the lumbar spine. Electronically signed by: Tyrell Eubanks MD 09/18/2025 07:41 AM EST
--- NOTE | ~2025-09-17 | XR_ITS ---
EXAMINATION: XR HIP 2 OR MORE VIEWS LEFT HISTORY: fall COMPARISON: There are no prior studies available for comparison. FINDINGS: Two views of the left hip are submitted. Osseous mineralization is normal. There is no fracture or dislocation. There is probable slight joint space narrowing. The soft tissues are unremarkable. XR/XR hip LT min 2V IMPRESSION: Probable slight joint space narrowing. Electronically signed by: Tyrell Eubanks MD 09/18/2025 07:40 AM [facility]
--- OUTSIDE RECORDS SUMMARY | 2025-09-17 14:40 | XMS_ITS | Encounter Summary ---
Author Organization [employer] Address [address] [facility] [address] 7[address] [place] [address] Care Team Providers Care Supervisor Doping Name Role Phone Alida Torres DAVID Primary Care Provider [phone] [phone] Reason for Visit * Reason Comments Hip Pain Encounter Details Date Type Department Care Team ([facility] st Contact Info) Description 09/17/2025 2:40 PM EST Office Visit [facility] [address] [place], [place] [phone] China Hernandez NP [address] [place], [place] [phone] Fall, initial encounter (Primary Dx); Left hip pain Social History Tobacco Use Types Packs/Day Years [...] AM EDT documented as of this encounter Last Filed Vital Signs Vital Sign Reading Time Taken Comments Blood Pressure 110/60 09/17/2025 2:49 PM EST Pulse 68 09/17/2025 2:49 PM EST Temperature 34.8 C (94.7 F) 09/17/2025 2:49 PM EST Respiratory Rate 17 09/17/2025 2:49 PM EST Oxygen Saturation 98% 09/17/2025 2:49 PM EST Inhaled Oxygen Concentration - - Weight 92.5 kg (204 lb) 09/17/2025 2:49 PM EST Height 154.9 cm (5' 1 ) 09/17/2025 2:49 PM EST Body Mass Index 38.55 09/17/2025 2:49 PM EST documented in this encounter Progress Notes * China Hernandez NP - 09/17/2025 2:40 PM EST SUBJECTIVE Louisa De Souza is a 40 y.o. female who presents for Hip Pain. HPI Louisa De Souza, 40-year-old female - Fell on ice while going down apartment stairs in the morning of September 17, 2025, landing on edge of concrete and hitting left side of back and hip - Pain in left back and hip area, worsened by movement or turning quickly - Using lidocaine patch with some relief - Denies shooting pain down legs, neuropathy, GI/ changes at this time - Denies likelihood of Review of Systems Constitutional: Negative. Negative for chills and fever. Respiratory: Negative for chest tightness and shortness of breath. Cardiovascular: Negative for chest pain. Gastrointestinal: Negative for abdominal pain, constipation, diarrhea and nausea. Genitourinary: Negative for dysuria. Musculoskeletal: Positive for arthralgias and back pain. Negative for myalgias and neck pain. Skin: Negative. Negative for rash and wound. Neurological: Negative for weakness, light-headedness and headaches. Psychiatric/Behavioral: Negative for behavioral problems, confusion, decreased concentration and suicidal ideas. Allergies[1] OBJECTIVE Vitals: 09/17/25 1449 BP: 110/60 BP Location: Left arm Patient Position: Sitting BP Cuff Size: Large adult Pulse: 68 Resp: 17 Temp: 94.7 ??F (34.8 ??C) TempSrc: Temporal SpO2: 98% Weight: 204 lb (92.5 kg) Height: 5' 1 (1.549 m) Physical Exam Vitals reviewed. Constitutional: General: She is not in acute distress. Appearance: Normal appearance. She is not ill-appearing. HENT: Head: Normocephalic and atraumatic. Right Ear: External ear normal. Left Ear: External ear normal. Nose: Nose normal. Eyes: General: No scleral icterus. Extraocular Movements: Extraocular movements intact. Cardiovascular: Pulses: Normal pulses. Heart sounds: Normal heart sounds. Pulmonary: Effort: Pulmonary effort is normal. No respiratory distress. Breath sounds: Normal breath sounds. Musculoskeletal: Cervical back: Normal range of motion. Lumbar back: Decreased range of motion. Negative right straight leg raise test and negative left straight leg raise test. Right hip: Normal. Left hip: Tenderness and bony tenderness present. Decreased range of motion. Neurological: General: No focal deficit present. Mental Status: She is alert and oriented to person, place, and time. Gait: Gait normal. Psychiatric: Mood and Affect: Mood normal. Behavior: Behavior normal. Assessment/Plan Fall, initial encounter: - Sustained a fall on ice resulting in impact to the left hip and lower back. - Ordered X-rays of the left hip and lower back to evaluate for fracture or other injury. - Advised to return for evaluation if no improvement after 2 weeks of conservative management. - Instructed to seek emergency care for new onset of numbness, tingling, loss of balance, or changes in bowel or bladder control. Left hip pain: - Acute left hip pain following trauma from fall. - Prescribed ibuprofen 600 mg every six hours for pain and inflammation. - Advised to use Tylenol and alternate with ibuprofen. - Recommended lidocaine patch 12 hours on, 12 hours off. - Suggested use of hot or cold compresses to affected area. - Will call with X-ray results Assessment & Plan Fall, initial encounter Orders: XR Lumbar Spine 2-3 Views; Future lidocaine (Lidoderm) 5 % patch; Apply 1 patch topically Once per day. Remove and discard for 12 hrsbefore replacing ibuprofen 600 MG tablet; Take 1 tablet (600 mg) by mouth every 6 (six) hours if needed for mild pain or moderate pain for up to 14 days. XR Hip 2 or 3 Views Left; Future Left hip pain Orders: XR Hip 2 or 3 Views Left; Future This note was drafted using Ambient (AI) technology. The patient/patient's guardian has been informed and has consented to the use of this technology: Yes Follow-up with PCP as scheduled for routine health or sooner as needed [1] No Known Allergies documented in this encounter Plan of Treatment Scheduled Orders Name Type Priority Associated Diagnoses Orde r Schedule XR Lumbar Spine 2-3 Views Imaging Routine Fall, initial encounter Expected: 09/17/2025, Expires: 09/17/2026 XR Hip 2 or 3 Views Left Imaging Routine Fall, initial encounter Left hip pain Expected: 09/17/2025, Expires: 09/17/2026 documented as of this encounter Visit Diagnoses Diagnosis Fall, initial encounter- Primary Left hip pain Pain in joint, pelvic region and thigh documented in this encounter Additional Health Concerns Assessment Noted Time PHQ-9 Depression Total Score: 14 025 12:01 PM EDT documented as of this encounter Care Teams Supervisor Doping Relationship Specialty Start Date End Date Alida Torres CNP [address] [place] [phone] PCP - General Family Medicine 06/08/25 documented as of this encounter
--- OUTSIDE RECORDS SUMMARY | 2025-09-17 17:30 | XMS_ITS | Encounter Summary ---
Author Organization [employer] Address [address] [facility] [address] [place] [address] Care Team Providers Care Fiscal Clerk Name Role Phone TorresAlida DAVID Primary Care Provider +1 [phone] Encounter Details Date Type Department Care Team ([facility] st Contact Info) Description 06/08/2025 Orders Only [facility] [address] [place] [address] Provider, MD Ramila Social History Tobacco Use [...] Procedure Name Priority Date/Time Associated Diagnosis Comments HM COLONOSCOPY Routine 12/08/2023 1:26 PM EDT documented in this encounter Results * Hm Colonoscopy (12/08/2023 1:26 PM EDT) us Historical Provider HEALTH MAINTENANCE Final Result documented in this encounter Visit Diagnoses Not on filedocumented in this encounter Additional Health Concerns Assessment Noted Time PHQ-9 Depression Total Score: 14 025 12:01 PM EDT documented as of this encounter Care Teams Fiscal Clerk Relationship Specialty Start Date End Date Alida Torres CNP [address] [place] [address] PCP - General Family Medicine 06/08/25 documented as of this encounter
--- OUTSIDE RECORDS SUMMARY | 2025-09-17 17:30 | XMS_ITS | Clinical Summary ---
Author Organization [employer] Address [address] [facility] [address] [place] [address] Care Team Providers Care Floorhand Name Role Phone Alida Torres CNP Primary Care Provider +1 [phone] Allergies No known active allergies Medications sertraline (Zoloft) 50 MG tabletIndicatio ns:Anxiety,[place] leda bilateral low back pain with bilateral sciatica Take 1/2 (25mg) tablet by mouth for 7 days. If tolerated may increase to 1 tablet (50mg) daily. 30 tablet 3 5 Active lidocaine (Lidoderm) 5 % patchIndication s:Fall, initial encounter Apply 1 patch topically Once per day. Remove and discard for 12 hrs before replacing 30 patch 1 5 Active ibuprofen 600 MG tabletIndicatio ns:Fall, initial encounter Take 1 tablet (600 mg) by mouth every 6 (six) hours if needed for mild pain or moderate pain for up to 14 days. 56 tablet 5 10/01/19 26 Active Active Problems Problem Noted Date Diagnosed Date Anxiety and depression 12/01/2022 Family history of colon cancer 12/01/2022 Former smoker 12/01/2022 H/O section 12/01/2022 Encounters Date Type Department Care Team Description 09/17/2025 2:40 PM EST Office Visit [facility] [address] [place] [address] China Hernandez NP Fall, initial encounter (Primary Dx); Left hip pain 09/17/2025 Travel 09/17/2025 Telephone [facility] [address] [place] [address] Alida Torres CNP Nurse Triage 09/17/2025 Telephone [facility] [address] [place], [place] [phone] Alida Torres CNP Medication Question 07/20/2025 9:00 AM EDT Office Visit [facility] [address] [place] [address] Alida Torres CNP Anxiety (Primary Dx) 07/20/2025 Results Follow-Up [facility] [address], [place] [phone] Alida Torres CNP Lipid Panel, Standard, CBC auto differential, Basic Metabolic Panel 07/20/2025 Travel 07/16/2025 Telephone [facility] [address], [place] [phone] Alida Torres CNP chart prep 07/13/2025 Travel from Last 3 Months Immunizations Immunization Administration [...] Mass Index 38.55 09/17/2025 2:49 PM EST Plan of Treatment Health Maintenance Due Date Last Done Comments Family Planning (PISQ) 2000 HPV Vaccines (1 - 3-dose series) 2000 Hepatitis B Vaccines (1 of 3 - 19+ 3-dose series) 2004 Pap Smear 2006 Cervical Cancer Screening 2015 HPV/Cotest 2015 Depression Monitoring 12/06/2025 06/08/2025 , 06/08/2025 Influenza Vaccine (#1) 2026 06/04/2017 Postp oned from 05/21/2025 (Patient Refused) Alcohol/Substance Use Screening 06/08/2026 06/08/2025 SDOH Screening 06/08/2026 06/08/2025 Disability Screening 07/13/2026 07/13/2025 COVID-19 Vaccine (1 - 2024-2 6 season) 2026 Postponed from 05/21 (Patient Refused) Tobacco Screening 09/17/2026 09/17/2025 DTaP/Tdap/Td Vaccines (2 - T d or Tdap) 06/04/2027 06/04/2017 Mammogram 08/15/2027 08/15/2025 Lipid Panel 07/20/2030 07/20/2025 Zoster Vaccines (1 [...] Procedure Name Priority Date/Time Associated Diagnosis Comments BI MAMMOGRAM SCREENING TOMOSYNTHESIS BILATERAL Routine 08/15/2025 3:14 PM EST Routine physical examination BASIC METABOLIC PANEL Routine 07/20/2025 8:21 AM [...] examination from Last 3 Months Results * BI Mammogram Screening Tomosynthesis Bilateral (08/15/2025 3:14 PM EST) Anatomical Region Laterality Modality Breast Bilateral Mammography 08/15/2025 3:14 PM EST Narrative 08/17/2025 5:45 PM EST [facility] [address] [place] [address] Mammography Report Signed Patient: Louisa De Souza MR#: [id number] : 1985 Acct:[id number] Age/Sex: 40 / F ADM Date: 08/15/25 Loc: HO.MAMMO Attending Dr: Alida Torres MASTIC FLOOR LAYER Ordering Physician: Alida Torres NP Results: 0I ncomplete- Need Additional Imaging Evaluation Date of Service: 08/15/25 Follow Up: Additional Imagi ng Procedure(s): MM tomosynthesis screening BI Accession Number(s): [id number] cc: Alida Torres NP Reason For Exam: routine screening mammo EXAMINATION: MM SCREENING DIGITAL BREAST TOMOSYNTHESIS, BILATERAL CLINICAL INFORMATION: Screening. Asymptomatic. COMPARISON: None. This is a baseline study. TECHNIQUE: Digital breast tomosynthesis is performed in mediolateral oblique and craniocaudal views along with computer-aided detection (CAD). Synthesized 2D images are generated from the tomosynthesis. FINDINGS: BREAST COMPOSITION: There are scattered areas of fibroglandular density. RIGHT BREAST: Approximately 0.7 cm focal asymmetry in the lateral breast at approximately 9 o'clock position posterior depth at 11-12 cm from the nipple (MLO 14/75, CC 17/72). No suspicious calcifications or other abnormalities are seen. LEFT BREAST: No significant masses, suspicious calcifications or other abnormalities are seen. MM/MM tomosynthesis screening BI IMPRESSION: RIGHT BREAST: 0.7 cm focal asymmetry in the lateral breast at approximately 9 o'clock position posterior depth. LEFT BREAST: Negative, no mammographic evidence of malignancy. Normal interval follow-up is recommended in 12 months. ASSESSMENT: BI-RADS: Category 0: Incomplete - Need additional Imaging Evaluation RECOMMENDATION: 1. Additional views of the right breast 2. Targeted ultrasound if warranted after review of the additional views. 3. Radiology department staff will contact the patient for additional imaging. FOLLOW-UP: Additional Imaging required This examination should not preclude the clinical evaluation of a suspicious palpable abnormality. This patient's information was entered into a reminder system with a target due date for their next mammogram. Electronically signed by: Stefanie Roberto MD 08/17/2025 05:42 PM [facility] Dictated By: Stefanie Roberto MD Signed By: <Electronically signed by Stefanie Roberto MD in OV> 08/17/25 1742 DD/ 1514 TD/TT: 08/15/25 1521 Geophysical Prospecting Surveyor: Procedure Note Donotuseinterpreter, Image - 08/17/2025 [facility] [address] [place] [address] Mammography Report Signed Patient: Adam De Souza#: [id number] : 1985Acct:[id number] Age/Sex: 40 / FADM Date: 08/15/25 Loc: HO.MAMMO Attending Dr: Alida Torres MASTIC FLOOR LAYER Ordering Physician: Alida Torres NPResults: 0I ncomplete- Need Additional Imaging Evaluation Date of Service: 08/15/25Follow Up: Additional Imagi ng Procedure(s): MM tomosynthesis screening BI Accession Number(s): [id number] cc: Alida Torres NP Reason For Exam: routine screening mammo EXAMINATION: MM SCREENING DIGITAL BREAST TOMOSYNTHESIS, BILATERAL CLINICAL INFORMATION: Screening. Asymptomatic. COMPARISON: None. This is a baseline study. TECHNIQUE: Digital breast tomosynthesis is performed in mediolateral oblique and craniocaudal views along with computer-aided detection (CAD). Synthesized 2D images are generated from the tomosynthesis. FINDINGS: BREAST COMPOSITION: There are scattered areas of fibroglandular density. RIGHT BREAST: Approximately 0.7 cm focal asymmetry in the lateral breast at approximately 9 o'clock position posterior depth at 11-12 cm from the nipple (MLO 14/, CC 17/). No suspicious calcifications or other abnormalities are seen. LEFT BREAST: No significant masses, suspicious calcifications or other abnormalities are seen. MM/MM tomosynthesis screening BI IMPRESSION: RIGHT BREAST: 0.7 cm focal asymmetry in the lateral breast at approximately 9 o'clock position posterior depth. LEFT BREAST: Negative, no mammographic evidence of malignancy. Normal interval follow-up is recommended in 12 months. ASSESSMENT: BI-RADS: Category 0: Incomplete - Need additional Imaging Evaluation RECOMMENDATION: 1. Additional views of the right breast 2. Targeted ultrasound if warranted after review of the additional views. 3. Radiology department staff will contact the patient for additional imaging. FOLLOW-UP: Additional Imaging required This examination should not preclude the clinical evaluation of a suspicious palpable abnormality. This patient's information was entered into a reminder system with a target due date for their next mammogram. Electronically signed by: Stefanie Roberto MD 08/17/2025 05:42 PM [facility] Dictated By: Stefanie Roberto MD Signed By: <Electronically signed by Stefanie Roberto MD in OV> 08/17/25 1742 DD/ 1514 TD/TT: 08/15/25 1521 Geophysical Prospecting Surveyor: [facility] BI PROCEDURES Final R esult * (ABNORMAL) CBC auto differential (07/20/2025 8:21 AM EDT) White Blood Count 9.1 4.8 - 10.8 X10*3/uL [facility] Red Blood Count 4.66 4.20 - 5.50 X10*6/uL [facility] Hemoglobin 14.0 12.0 - 16.0 g/dl [facility] Hematocrit 42.7 37.0 - 47.0 % [facility] Mean Corpuscular Volume 91.6 80.0 - 98.0 fL [facility] Mean Corpuscular Hemoglobin 30.0 27.0 - 33.0 pg [facility] Mean Corpuscular HGB Conc 32.8 31.0 - 35.0 g/dl [facility] Red Cell Distribution Width 12.9 11.0 - 16.0 % [facility] Platelet Count 253 160 - 400 X10*3/uL [facility] Mean Platelet Volume 13.2(H) 9.4 - 12.3 fL [facility] Neutrophils Percent Auto 59.3 45 - 73 % [facility] Imm Gran Pct Auto 0.3 0.0 - 0.4 % [facility] Lymphocytes Percent Auto 29.0 20 - 40 % [facility] Monocytes Percent Auto 4.6 2 - 11 % [facility] Eosinophils Percent Auto 5.9(H) 0 - 4 % [facility] Basophils Percent Auto 0.9 0 - 2 % [facility] NRBC Pct Auto 0.0 0.0 - 0.2 /100WBC [facility] Neutrophils Absolute Auto 5.4 2.0 - 8.3 x10*3/uL [facility] Imm Gran Abs Auto 0.03 0.00 - 0.03 X10*3/uL [facility] Lymphocytes Absolute Auto 2.6 1.2 - 4.9 X10*3/uL [facility] Monocytes Absolute Auto 0.4 0.1 - 1.2 X10*3/uL [facility] Eosinophils Absolute Auto 0.5(H) 0.0 - 0.4 X10*3/uL [facility] Basophils Absolute Auto 0.1 0.0 - 0.2 X10*3/uL [facility] NRBC Abs Auto 0.000 0.0 - 0.012 X10*3/uL [facility] Blood Venous blood specimen / Unknown 07/20/2025 8:21 AM EDT 07/20/2025 2:00 PM EDT [facility] LAB BLOOD ORDERABLES Emely l Result [facility] [address] [place] [address] [phone] * Hepatitis C Antibody with Reflex to HCV, RNA, Quantitative, Real-Time PCR (07/20/2025 8:21 AM EDT) Hepatitis C Antibody Nonreactive Nonreactive [facility] Comment:Antibodies to HCV no t detected; does not exclude early acuteHCV infection. Blood Venous blood specimen / Unknown 07/20/2025 8:21 AM EDT 07/20/2025 2:00 PM EDT [facility] LAB BLOOD ORDERABLES Meely l Result [facility] [address] [place] [address] [phone] * Hepatitis B surface antigen, EIA (07/20/2025 8:21 AM EDT) Hepatitis B Surface Ag Negative Negative [facility] Blood Venous blood specimen / Unknown 07/20/2025 8:21 AM EDT 07/20/2025 2:00 PM EDT [facility] LAB BLOOD ORDERABLES Emely l Result [facility] [address] [place] [address] [phone] * Hepatitis B Core Antibody, Total (07/20/2025 8:21 AM EDT) Hepatitis B Core Antibody Nonreactive Nonreactive [facility] Blood Venous blood specimen / Unknown 07/20/2025 8:21 AM EDT 07/20/2025 2:00 PM EDT [facility] LAB BLOOD ORDERABLES Emely l Result Performing Organization Address [facility] Co de Phone Number [facility] [address] [place] [address] [phone] * HIV-1/2 Antigen and Antibodies, Fourth Generation, with Reflexes (07/20/2025 8:21 AM EDT) Pathologist [facility] HIV AB/AG Nonreactive Nonreactive [facility] Comment:HIV-1 p24 Ag and/or HIV-1/HIV-2 Ab not detected.A test result that is nonreactive does not exclude thepossibility of exposure to or infection with HIV-1 and/orHIV-2. Nonreactive results in this assay for individualswith prior exposure to HIV-1 and/or HIV-2 may be due toantigen and antibody levels that are below the limit ofdetection of this assay.The [employer] HIV Ag/Ab Combo assay result andsupplemental assay results should be interpreted inconjunction with the patient's clinical presentation,history and other laboratory results. If the results areinconsistent with clinical evidence, additional testing issuggested to confirm the result. Blood Venous blood specimen / Unknown 07/20/2025 8:21 AM EDT 07/20/2025 2:00 PM EDT [facility] LAB BLOOD ORDERABLES Emely l Result Performing Organization Address City/[facility]/ZIP Co de Phone Number [facility] [address] [place] [address] [phone] * Hepatitis B Surface Antibody, Qualitative (07/20/2025 8:21 AM EDT) Pathologist [facility] ~Hepatitis B Surface Antibody NONREACTIVE Nonreactive [facility] Comment:Nonreactive: < 8.00 mIU/mL Blood Venous blood specimen / Unknown 07/20/2025 8:21 AM EDT 07/20/2025 2:00 PM EDT [facility] LAB BLOOD ORDERABLES Emely l Result Performing Organization Address [facility]/ZIP Co de Phone Number [facility] [address] [place] [address] [phone] * (ABNORMAL) Lipid Panel, Standard (07/20/2025 8:21 AM EDT) Triglycerides 85 <150 mg/dL [facility] Comment:Desirable Triglyceri de: less than 150 mg/dLBorderline High Triglyceride 150-199 mg/dLHigh Triglyceride: 200-499 mg/dLVery High Triglyceride: greater than or equal to 5OO mg/dL Cholesterol 195 <200 mg/dL [facility] Comment:Desirable Cholestero l: less than 200 mg/dLBorderline High Cholesterol: 200-239 mg/dLHigh Cholesterol: greater than 239 mg/dL LDL Cholesterol Calculated 135(H) <100 mg/dL [facility] Comment:Desirable LDL: less than 100 mg/dLNear Optimal/Above Optimal LDL: 110- 129 mg/dLBorderline High LDL: 130-159 mg/dLHigh LDL: 160-189 mg/dLVery High LDL: greater than or equal to 190 mg/dL HDL Cholesterol 43 >40 mg/dL [facility] Comment:Desirable HDL: great er than 40 mg/dL Note: This HDL assay may give artificially low results in patients with liver disease. Blood Venous blood specimen / Unknown 07/20/2025 8:21 AM EDT 07/20/2025 2:00 PM EDT [facility] LAB BLOOD ORDERABLES Emely l Result Performing Organization Address City/[facility]/ZIP Co de Phone Number [facility] [address] [place] [phone] [phone] * (ABNORMAL) Basic Metabolic Panel (07/20/2025 8:21 AM EDT) Sodium 139 135 - 145 mmol/L [facility] Potassium 4.1 3.3 - 5.1 mmol/L [facility] Chloride 109(H) 96 - 108 mmol/L [facility] Carbon Dioxide 23 22 - 29 mmol/L [facility] Anion Gap 11(L) 12 - 20 [facility] Urea Nitrogen (BUN) 11 9 - 16 mg/dL [facility] Creatinine, Serum 0.59 0.5 - 1.4 mg/dL [facility] Estimated Glomerular Filt Rate >60 [facility] Comment:Chronic Kidney Disea se: Estimated GFR < 60 mL/min/1.73m2Shtzqn Kidney Disease: Estimated GFR < 15 mL/min/1.73m2 Glucose 77 60 - 115 mg/dL [facility] Calcium 9.3 8.4 - 10.2 mg/dL [facility] Blood Venous blood specimen / Unknown 07/20/2025 8:21 AM EDT 07/20/2025 2:00 PM EDT Alida Torres CNP LAB BLOOD ORDERABLES Emely l Result [facility] [address] [place] [address] [phone] from Last [address] [place] [address] C3 Care Teams Floorhand Relationship Specialty Start Date End Date Alida Torres CNP [address] [place] [address] PCP - General Family Medicine 06/08/25
--- OUTSIDE RECORDS SUMMARY | 2025-09-17 17:30 | XMS_ITS | Encounter Summary ---
Author Organization [employer] Address [address] [facility] 7t [place] [address] Care Team Providers Care Manager Operational Name Role Phone Alida Torres CNP Primary Care Provider [phone] Reason for Visit * Reason Onset Date Comments Medication Question 09/17/2025 Encounter Details Date Type Department Care Team ([facility] Contact Info) Description 09/17/2025 Telephone [facility] [address] [place] [address] Alida Torres CNP [address] [place], [place] [phone] Medication Question Social History Tobacco Use Types Packs/Day Years [...] encounter Miscellaneous Notes * Telephone Encounter - Loyd Briseno - 09/17/2025 11:44 AM EST Tc from pt requesting for new prescritions from pcp . Lidocain patch 5% 1x patch topically per day Ibuprofen 600mg ( as needed ) To be sent to : [facility] [employer] [id number] [place], [place] - [address] [place] [address] AT [facility] documented in this encounter Plan of Treatment Not on file documented as of this encounter Visit Diagnoses Diagnosis Fall, initial encounter documented in this encounter Additional Health Concerns Assessment Noted Time PHQ-9 Depression Total Score: 14 025 12:01 PM EDT documented as of this encounter Care Teams Manager Operational Relationship Specialty Start Date End Date Alida Torres CNP [address] [place] [address] PCP - General Family Medicine 06/08/25 documented as of this encounter
--- OUTSIDE RECORDS SUMMARY | 2025-09-17 17:30 | XMS_ITS | Encounter Summary ---
Author Organization [employer] Address [address] [facility] 7t [place] [address] Care Team Providers Care Sausage Mixer Name Role Phone Alida Torres CNP Primary Care Provider [phone] [phone] Encounter Details Date Type Department Care Team ([facility] Contact Info) Description 05/09/2025 Telephone [facility] [address] [place] [address] Alida Torres CNP [address] [place] [address] Social History Tobacco Use Types Packs/Day Years [...] Pt reported had 2 Colon polyps removed *Back Tender Insulation Board advised caller to arrive 15 minutes early [...] on filedocumented in this encounter Care Teams Sausage Mixer Relationship Specialty Start Date End Date Alida Torres CNP [address] [place], [place] [address] [address] PCP - General Family Medicine 06/08/25 documented as of this encounter
--- OUTSIDE RECORDS SUMMARY | 2025-09-17 17:30 | XMS_ITS | Encounter Summary ---
Author Organization [employer] Address [address] [facility] 7t [place] [address] Care Team Providers Care Pilling Machine Operator Name Role Phone Alida Torres CNP Primary Care Provider [phone] [phone] Encounter Details Date Type Department Care Team ([facility] Contact Info) Description 07/20/2025 Results Follow-Up [facility] [address] [place] [address] Alida Torres, DAVID [address] [place] [address] Lipid Panel, Standard, CBC auto differential, Basic [...] documented as of this encounter Care Teams Pilling Machine Operator Relationship Specialty Start Date End Date Alida Torres CNP [address] [place] [address] PCP - General Family Medicine 06/08/25 documented as of this encounter
--- OUTSIDE RECORDS SUMMARY | 2025-09-17 17:30 | XMS_ITS | Encounter Summary ---
Author Organization [employer] Address [address] [facility] 7t [place] [address] Care Team Providers Care Soldering Machine Operator Name Role Phone Alida Torres DAVID Primary Care Provider [phone] [phone] Encounter Details Date Type Department Care Team (Latest Contact Info) Description 09/17/2025 Travel Social History Tobacco Use Types Packs/Day Years [...] documented as of this encounter Care Teams Soldering Machine Operator Relationship Specialty Start Date End Date Alida Torres CNP [address] [place] [address] PCP - General Family Medicine 06/08/25 documented as of this encounter
--- OUTSIDE RECORDS SUMMARY | 2025-09-17 17:30 | XMS_ITS | Encounter Summary ---
Author Organization [employer] Address [address] [facility] 7t [place] [address] Care Team Providers Care Building Manager Name Role Phone Alida Torres CNP Primary Care Provider [phone] [phone] Reason for Visit * Reason Onset Date Comments Nurse Triage 09/17/2025 Encounter Details Date Type Department Care Team ([facility] st Contact Info) Description 09/17/2025 Telephone [facility] [address] [place] [address] Alida oTrres CNP [address] [place], [place] [phone] Nurse Triage Social History Tobacco Use Types Packs/Day Years [...] encounter Miscellaneous Notes * Telephone Encounter - Michelle Dutton RN - 09/17/2025 1:10 PM EST called pt to triage, spoke to pt. pt states fell on the ice this morning and having some back pain.pt states low back/buttock pain without severe pain, inability to stand or walk, radiation, numbness, or other associated or severe symptoms. pt requesting refill of Ibuprofen and Lidoderm patches. pt will try the walk-in center or an UC in her area if not the walk in. advised home care: rest, fluids, ice, heat, OTC as needed and call back if worsening or new concerns. pt understands and agrees with plan. will task request for refills to PCP as they are according to her med profile. Protocol Used: Back Pain (Adult) Protocol-Based Disposition: See in Office or Video Visit within 3 Days Video visit offer not recorded Positive Triage Question: * Patient wants to be seen * All higher-acuity triage questions were negative. Care Advice Discussed: * Reassurance and Education - Back Pain * Cold or Heat * Sleep * Continue Activity * Pain Medicines * Reasons To Call Back - Severe pain not better after taking pain medicines - Moderate pain (interferes with normal activities) lasts over 3 days - Pain begins to shoot into the leg - Pain lasts over 2 weeks - Fever occurs - Numbness or weakness occurs - Loss of control of your bladder or bowel - You become worse * Telephone Encounter - Loyd Finn - 09/17/2025 11:47 AM EST Symptom: Back Injury Outcome: Schedule an urgent appointment (within 4 hours) or talk to a nurse or provider soon Reason: Happened within the past 24 hours The caller accepted this outcome. *slipped on ice this AM documented in this encounter Plan of Treatment Not on file documented as of this encounter Visit Diagnoses Not on filedocumented in this encounter Additional Health Concerns Assessment Noted Time PHQ-9 Depression Total Score: 14 025 12:01 PM EDT documented as of this encounter Care Teams Building Manager Relationship Specialty Start Date End Date Alida Torres CNP [address] [place] [address] PCP - General Family Medicine 06/08/25 documented as of this encounter
== END 2025-09-17 15:26 | disposition home or self-care (01) ==
LOC: HO.XRAY 15:25
PROVIDERS: Visit Provider Nurse Practitioner
DX: M25.552 Pain in left hip (principal); W19.XXXA Unspecified fall, initial encounter
CPT/HCPCS: 72100; 73502

== ENCOUNTER → 2025-09-17 15:29 | Outpatient (BNV) | payer MEDICAID, SELFPAY | PROVIDERS: Visit Provider Radiology Diagnostic Radiology | DX: Z04.3 Encounter for examination and observation following other accident (principal) | CPT/HCPCS: 72100; 73502 ==